=== PATIENT | female | born 1955 | race Caucasian/White ===

== ENCOUNTER 2023-04-24 13:43 | Outpatient (REF) | payer MEDICARE, SELFPAY ==
[2023-04-24 16:06] LABS: Alanine Aminotransferase 27 U/L (0-31); Albumin Level 4.3 g/dL (3.5-5.0); Alkaline Phosphatase 39 U/L (39-117); Anion Gap 12 (12-20); Aspartate Amino Transferase 25 U/L (5-31); Bilirubin Total 0.4 mg/dL (0.0-1.0); Blood Urea Nitrogen 15 mg/dL (9-16); Calcium 9.4 mg/dL (8.4-10.2); Carbon Dioxide 27 mmol/L (22-29); Chloride 106 mmol/L (96-108); Estimated Glomerular Filt Rate > 60; Glucose Random 77 mg/dL (60-115); Potassium 4.3 mmol/L (3.3-5.1); Sodium 141 mmol/L (135-145); Total Protein 7.5 g/dL (6.5-8.0)
[2023-04-24 16:14] LABS: Thyroid Stimulating Hormone 1.09 uIU/mL (0.32-4.0)
[2023-04-27 15:29] LABS: Transglutaminase IgA <1.0 U/mL
[2023-04-29 12:19] LABS: Endomysial IgA Antibody Negative (Negative)
== END 2023-04-24 13:44 | disposition home or self-care (01) ==
LOC: HO.LAB 13:43
PROVIDERS: PCP Internal Medicine; Visit Provider Physician Assistant
DX: K52.9 Noninfective gastroenteritis and colitis, unspecified (principal); R19.8 Other specified symptoms and signs involving the digestive system and abdomen; G89.29 Other chronic pain; Z98.890 Other specified postprocedural states
CPT/HCPCS: 36415; 80053; 84443; 85025; 86231; 86364; 99202

== ENCOUNTER 2023-04-24 13:43 | Outpatient (AMB) | payer MEDICARE, SELFPAY ==
--- NOTE | 2023-04-24 13:49 | A.OFFVIS_ITS ---
Intake Vital Signs 04/24/23 13:51 Height 5 ft 9.5 in Weight 127 lb 13.89 oz BMI 18.6 BP 149/72 H Blood Pressure Location Lt brachial Position Sitting Pulse 87 Intake Visit Reasons: Abdominal pain, nausea Intake Note: Liz presents in the office as a new patient for abdominal pains and nausea. CC: reclast fusion on the Apr. She states that she is having pains in her stomach and her bowels that have been ongoing for a while now. Client Solutions Manager Required: No Allergies erythromycin base [From Erythrocin] Allergy (Intermediate, Verified 04/24/23 13:51) GI upset LACTOSE Allergy (Intermediate, Uncoded 04/24/23 13:51) GI upset Medication List - Last Reconciled 04/24/23 by Celia Davis PA-C buspirone 10 mg PO BID cholecalciferol (vitamin D3) 10 mcg PO DAILY cranberry 400 mg PO DAILY pravastatin 10 mg PO BEDTIME vitamin B complex (B Complex-Vitamin B12 tablet) 1 tab PO DAILY HPI HPI Comments History of Present Illness Details A 67-year-old female referred with chronic abdominal pain-she has already been seen and evaluated previously having CT, blood working colonoscopy over the past few years She was unable to get appointment with [facility] so was referred here to [facility]. She had gone to [facility] 12/2022-where she had abdominal CT as w ell as blood work according to referral note all was within range with exception of severe constipation diverticulosis- not diverticulitis- She was did an enema she took senna- seemed to help. She had bowel/ stomach issues for years Colonoscopy 2016-normal other than diverticulosis-due for repeat colonoscopy, history of polyps previously Appetite is fairly good, she does fairly frequent nausea Very worried about celiac disease-and Crohns Reclast 04/20/23-osteopenia present- many question answered to their satisfaction No vomiting, hematemesis, hematochezia fever chills PFSH Medical History (Updated 04/26/23 @ 08:05 by Celia Davis PA-C) Hx of Surgical History (Updated 04/24/23 @ 14:03 by Celia Davis PA-C) Hx of carpal tunnel repair Hx of colonoscopy History of eye surgery Hx of left knee surgery Hx of tubal ligation Hx of dilation and curettage Hx of rotator cuff surgery Family History Mother DMII (diabetes mellitus, type 2) HTN (hypertension) Father Heart attack Daughter Diverticula of colon Social History (Updated 04/26/23 @ 08:00 by Celia Davis PA-C) Household Members: Family Alcohol intake: current Alcohol intake frequency: holidays/special occasions only Patient Tobacco Use Status: Current everyday Tobacco user Current occupational status: disabled Review of Systems Const All systems reviewed & are unremarkable except as noted in HPI and below Card Denies chest pain and Reports dyspnea on exertion (rare-) Resp Reports dyspnea on exertion (rare-) GI Reports abdominal pain, Denies hematochezia, Reports constipation, Denies heartburn, Denies diarrhea, Reports nausea and Denies vomiting Physical Exam Vital Signs: Last Vital Signs Pulse 87 04/24/23 13:51 BP 149/72 H 04/24/23 13:51 BMI result Body Mass Index 18.6 Const General: cooperative, healthy appearing, comfortable and anxious Orientation/consciousness: patient oriented x3 Limitations: no limitations Eyes Sclerae: sclerae normal Resp Effort & Inspection: normal respiratory effort and able to speak in complete sentences Auscultation: clear to auscultation bilaterally, no rales and no rhonchi Cardio Rate: regular rate Rhythm: regular rhythm Heart sounds: S1 normal heart sound present and S2 normal heart sound present GI Inspection: Yes normal to inspection Palpation (GI): Soft to palpation, nontender and no guarding Percussion: Yes normal to percussion Auscultation: normal bowel sounds Skin General skin exam: no rashes or lesions noted Neuro General: patient oriented x3 Extrem General: Yes full ROM Psych Appearance: grossly normal and well kempt Mental Status: mental status grossly normal Speech and movement: Normal speech and movement present Affect: Anxious affect present Attitude: cooperative Thought process: Normal thought process present Assessment & Plan Assessment & Plan (1) Chronic abdominal pain: Comment: Years chronic abdominal pain, may likely have functional component has had workup at weaning with CT of recent as well as blood work that she reports as normal. She is due for polyp surveillance colonoscopy Code(s): R10.9 - Unspecified abdominal pain; G89.29 - Other chronic pain Plan: Bowel regimen (2) Hx of colonoscopy: Code(s): Z98.890 - Other specified postprocedural states Plan: Schedule colonoscopy timing appropriate- able to successful colon prep Due for polyp surveillance Plan Labs Consistent bowel regimen Placed order EGD colonoscopy Will see back prior to procedures to ensure adequate bowel routine Orders: Orders Comprehensive Met. Panel 04/24/23 K58.9 - Irritable bowel syndrome without diarrhea Thyroid Stimulating Hormone 04/24/23 R19.8 - Other specified symptoms and signs involving the digestive system and abdomen Transglutaminase IgA 04/24/23 G89.29 - Other chronic pain, R10.9 - Unspecified abdominal pain, Z98.890 - Other specified postprocedural states Complete Blood Count Auto Diff 04/24/23 K52.9 - Noninfective gastroenteritis and colitis, unspecified Endomysial IgA rflx Titer 04/24/23 G89.29 - Other chronic pain, R10.9 - Unspecified abdominal pain, Z98.890 - Other specified postprocedural states Medications: New docusate sodium (Colace) 200 mg (2 x 100 mg) PO BEDTIME 60 caps 5RF bisacodyl (Dulcolax (bisacodyl)) 10 mg ND DAILY PRN 20 ea 0RF constipation bisacodyl (Dulcolax (bisacodyl)) Day before procedure, prep day Take 4 tablets by mouth upon awakening followed by large glass of water 20 mg (4 x 5 mg) PO ONCE 1 day 4 tabs 0RF colonoscopy prep Z12.11 - Encounter for screening for malignant neoplasm of colon calcium polycarbophil (Fiber Laxative (calcium polycarbophil)) 1,250 mg (2 x 625 mg) PO DAILY 30 days 60 tabs 3RF polyethylene glycol 3350 (Miralax) 17 grams PO DAILY 510 grams 6RF polyethylene glycol 3350 (Miralax) Take as directed by mouth the day before your procedure. 238 grams PO ONCE 1 day PRN 238 grams 0RF laxative effect Patient Instructions: Pleasant somewhat anxious 67-year-old female with chronic abdominal pain- She will have Labs Consistent bowel regimen Maintain high-fiber Will see prior to EGD colonoscopy to assure adequate prep Reassurance Encouraged to call questions or concerns Coding Level of Care Code New Pt Level 4 (73510) Diagnoses Chronic abdominal pain R10.9; G89.29 Hx of colonoscopy Z98.890 Time Spent (min) 50 Comment present
[2023-04-24 13:51] VITALS: BP 149/72; PULSE 87; BMI 18.6
== END 2023-04-24 15:33 | disposition home or self-care (01) ==
PROVIDERS: PCP Internal Medicine; Visit Provider Physician Assistant
DX: R10.9 Unspecified abdominal pain (principal); G89.29 Other chronic pain; Z98.890 Other specified postprocedural states
CPT/HCPCS: 99204

== ENCOUNTER 2023-06-22 11:55 | Outpatient (AMB) | payer MEDICARE, SELFPAY ==
--- NOTE | 2023-06-22 12:12 | A.OFFVIS_ITS ---
Intake Vital Signs 06/22/23 12:38 Height 5 ft 9.5 in Weight 132 lb BMI 19.2 BP 130/58 L Blood Pressure Location Rt brachial Position Sitting Pulse 94 Intake Visit Reasons: 8 week follow up Allergies erythromycin base [From Erythrocin] Allergy (Intermediate, Verified 04/24/23 13:51) GI upset LACTOSE Allergy (Intermediate, Uncoded 04/24/23 13:51) GI upset Medication List - Last Reconciled 06/22/23 by Celia Davis PA-C bisacodyl (Dulcolax (bisacodyl)) 10 mg CA DAILY PRN bisacodyl (Dulcolax (bisacodyl)) 20 mg (4 x 5 mg) PO ONCE 1 day buspirone 10 mg PO BID calcium polycarbophil (Fiber Laxative (calcium polycarbophil)) 1,250 mg (2 x 625 mg) PO DAILY 30 days cholecalciferol (vitamin D3) 10 mcg PO DAILY cranberry 400 mg PO DAILY docusate sodium (Colace) 200 mg (2 x 100 mg) PO BEDTIME polyethylene glycol 3350 (Miralax) 17 grams PO DAILY polyethylene glycol 3350 (Miralax) 238 grams PO ONCE PRN 1 day pravastatin 10 mg PO BEDTIME vitamin B complex (B Complex-Vitamin B12 tablet) 1 tab PO DAILY HPI HPI Comments History of Present Illness Details A 67 y/o female with a personal history of colon polyps chronic nausea, constipation follows up- she is following bowel regimen with excellent response- she has had BM typically once sometimes twice daily-we had held off on scheduling colonoscopy- She has long hx -nausea-the she denies acid reflux She eats healthy-trying to maintain weight We have reviewed blood work -no anemia, celiac markers negative She has nausea, no vomiting hematemesis, hematochezia fever or chills PFSH Medical History (Updated 06/22/23 @ 16:01 by Celia Davis PA-C) Hx of Surgical History (Updated 06/22/23 @ 16:02 by Celia Davis PA-C) Hx of carpal tunnel repair Hx of colonoscopy History of eye surgery Hx of left knee surgery Hx of tubal ligation Hx of dilation and curettage Hx of rotator cuff surgery Family History Mother DMII (diabetes mellitus, type 2) HTN (hypertension) Father Heart attack Daughter Diverticula of colon Social History (Updated 04/26/23 @ 08:00 by Celia Davis PA-C) Household Members: Family Alcohol intake: current Alcohol intake frequency: holidays/special occasions only Patient Tobacco Use Status: Current everyday Tobacco user Current occupational status: disabled Review of Systems Const All systems reviewed & are unremarkable except as noted in HPI and below Card Denies chest pain and Denies dyspnea Resp Denies dyspnea GI Denies abdominal pain Physical Exam Vital Signs: Last Vital Signs Pulse 94 06/22/23 12:38 BP 130/58 L 06/22/23 12:38 BMI result Body Mass Index 19.2 Const General: cooperative, comfortable and no acute distress Nutritional Appearance: thin Orientation/consciousness: patient oriented x3 Limitations: no limitations Eyes Sclerae: sclerae normal Resp Effort & Inspection: normal respiratory effort and able to speak in complete sentences Skin General skin exam: dry skin Neuro General: patient oriented x3 Extrem General: Yes full ROM Psych Appearance: well kempt Mental Status: mental status grossly normal Speech and movement: Normal speech and movement present and Clear speech present Affect: normal affect Attitude: cooperative Thought content: Normal thought content present Insight: Good insight present (Psych) Judgement: Good judgement present (Psych) Assessment & Plan Assessment & Plan (1) Chronic nausea: Code(s): R11.0 - Nausea Plan: EGD (2) Hx of colonoscopy: Comment: History-colon polyps Code(s): Z98.890 - Other specified postprocedural states (3) Chronic abdominal pain: Comment: Years chronic abdominal pain, may likely have functional component She is due for polyp surveillance colonoscopy Code(s): R10.9 - Unspecified abdominal pain; G89.29 - Other chronic pain (4) Hx of adenomatous colonic polyps: Code(s): Z86.010 - Personal history of colonic polyps Plan: Polyp surveillance colonoscopy (5) Chronic constipation: Comment: Good response with consistent bowel regimen Should be able to have adequate prep for colonoscopy Code(s): K59.09 - Other constipation Plan: Proceed to colonoscopy Plan EGD/ colon-ROJAS- Orders: Orders EGD/Penelope Combo - GI Use Only Today G89.29 - Other chronic pain, R10.9 - Unspecified abdominal pain, R11.0 - Nausea, Z86.010 - Personal history of colonic polyps, Z98.890 - Other specified postprocedural states Patient Instructions: EGD and colonoscopy Discussed procedures, rare risks, need for escort MiraLax Gatorade prep reviewed literature given Maintain high-fiber diet Encouraged to call questions or concerns Appreciate the opportunity assist care pleasant patient Coding Level of Care Code Est Pt Level 3 (04775) Diagnoses Chronic nausea R11.0 Hx of colonoscopy Z98.890 Chronic abdominal pain R10.9; G89.29 Hx of adenomatous colonic polyps Z86.010 Chronic constipation K59.09 Time Spent (min) 25
[2023-06-22 12:38] VITALS: BP 130/58; PULSE 94; BMI 19.2
== END 2023-06-22 12:51 | disposition home or self-care (01) ==
PROVIDERS: PCP Internal Medicine; Visit Provider Physician Assistant
DX: R11.0 Nausea (principal); Z98.890 Other specified postprocedural states; R10.9 Unspecified abdominal pain; G89.29 Other chronic pain; Z86.010 Personal history of colon polyps; K59.09 Other constipation
CPT/HCPCS: 99213

== ENCOUNTER → 2023-06-22 11:55 | Outpatient (BNVA) | payer MEDICARE, SELFPAY | PROVIDERS: PCP Internal Medicine; Visit Provider Physician Assistant | DX: R11.0 Nausea (principal); R10.9 Unspecified abdominal pain; G89.29 Other chronic pain; Z98.890 Other specified postprocedural states | CPT/HCPCS: 99212 ==

== ENCOUNTER 2023-12-19 10:10 | Day surgery (SDC) | payer MEDICARE, SELFPAY ==
--- NOTE | 2023-12-15 10:50 | HO.ANESPROP2 ---
Documented by User: Sheela Lucas NP 12/15/23 10:51 HPI - Anesthesia Eval Consult details Narrative: 68yo F for Upper Endoscopy and Colonoscopy PMFSH Active Problems Active Problems: All Active Problems Chronic constipation (Acute) Hx of adenomatous colonic polyps (Acute) Chronic nausea (Acute) Hx of colonoscopy (Acute) Chronic abdominal pain (Acute) Past Medical History Medical History Hx of Family History Family History Mother DMII (diabetes mellitus, type 2) HTN (hypertension) Father Heart attack Daughter Diverticula of colon Surgical History Surgical History Hx of carpal tunnel repair Hx of colonoscopy History of eye surgery Hx of left knee surgery Hx of tubal ligation Hx of dilation and curettage Hx of rotator cuff surgery Social History Social History (Updated 04/26/23 @ 08:00 by Celia Davis PA-C) Household Members: Family Alcohol intake: current Alcohol intake frequency: holidays/special occasions only Patient Tobacco Use Status: Current everyday Tobacco user Cigarette Packs Per Day: 1.5 Cigarettes Per Day: 30.0 Have you been hit, kicked, punched, or otherwise hurt by someone within the past year? If so, by whom?: No Are you DNR?: No Advance Directives: No Advance Directives Information Provided: Yes Recently lost weight without trying: No Nutrition Risks: No Nutritional Risk Patient : No Current occupational status: disabled Meds Allergies Allergy/AdvReac Type Severity Reaction Status Date / Time erythromycin base Allergy Intermediate GI upset Verified 04/24/23 13:51 [From Erythrocin] LACTOSE Allergy Intermediate GI upset Uncoded 04/24/23 13:51 Home Medications ?Medication ?Instructions ?Recorded ?Confirmed ?Last Taken ?Type buspirone 10 mg tablet 10 mg PO BID 04/24/23 06/22/23 Unknown History cholecalciferol (vitamin D3) 10 10 mcg PO DAILY 04/24/23 06/22/23 Unknown History mcg (400 unit) capsule cranberry 400 mg capsule 400 mg PO DAILY 04/24/23 06/22/23 Unknown History pravastatin 10 mg tablet 10 mg PO BEDTIME 04/24/23 06/22/23 Unknown History vitamin B complex (B 1 tab PO DAILY 04/24/23 06/22/23 Unknown History Complex-Vitamin B12 tablet) Assessment and Plan Assessment Anesthesia Assessment: PAT Visit Documented by User: Neal Sung MD 12/19/23 13:11 PMF Past Medical History Medical History Hx of Family History Family History Mother DMII (diabetes mellitus, type 2) HTN (hypertension) Father Heart attack Daughter Diverticula of colon Family history of problems with anesthesia: No Surgical History Surgical History Hx of carpal tunnel repair Hx of colonoscopy History of eye surgery Hx of left knee surgery Hx of tubal ligation Hx of dilation and curettage Hx of rotator cuff surgery History of Problems with Anesthesia: No Social History Social History (Updated 04/26/23 @ 08:00 by Celia Davis PA-C) Household Members: Family Alcohol intake: current Alcohol intake frequency: holidays/special occasions only Patient Tobacco Use Status: Current everyday Tobacco user Cigarette Packs Per Day: 1.5 Cigarettes Per Day: 30.0 Have you been hit, kicked, punched, or otherwise hurt by someone within the past year? If so, by whom?: No Are you DNR?: No Advance Directives: No Advance Directives Information Provided: Yes Recently lost weight without trying: No Nutrition Risks: No Nutritional Risk Patient : No Current occupational status: disabled Meds Allergies Allergy/AdvReac Type Severity Reaction Status Date / Time erythromycin base Allergy Intermediate GI upset Verified 04/24/23 13:51 [From Erythrocin] LACTOSE Allergy Intermediate GI upset Uncoded 04/24/23 13:51 Home Medications ?Medication ?Instructions ?Recorded ?Confirmed ?Last Taken ?Type buspirone 10 mg tablet 10 mg PO BID 04/24/23 06/22/23 Unknown History cholecalciferol (vitamin D3) 10 10 mcg PO DAILY 04/24/23 06/22/23 Unknown History mcg (400 unit) capsule cranberry 400 mg capsule 400 mg PO DAILY 04/24/23 06/22/23 Unknown History pravastatin 10 mg tablet 10 mg PO BEDTIME 04/24/23 06/22/23 Unknown History vitamin B complex (B 1 tab PO DAILY 04/24/23 06/22/23 Unknown History Complex-Vitamin B12 tablet) Exam Airway Mallampati Class: II TM Dist: >3cm Neck ROM: Full Partial: Upper Loose/Missing/Broken Teeth: Yes and Upper Heart: ok Lungs: ok Assessment and Plan Assessment Anesthesia Assessment: Anesthesia Plan Discussed and Chart Reviewed Final Anesthetic Review Family History of Problems with Anesthesia: No History of Problems with Anesthesia: No NPO: Yes ASA Class: II Final Preanesthetic Review: No Changes in Pt Med Stat, Meds/Allgs Chart Reviewed, Consent Obtained/Reviewed and Anes Risks/Benef Reviewed Patient Risk: Low Procedure Risk: Intermediate Anesthetic Plan Anesthetic Plan: Agree w/ Assess. and Plan and TIVA Disposition: Standard PACU
[2023-12-19 10:21] VITALS: BMI 18.3
[2023-12-19 10:38] VITALS: BP 145/85; PULSE 98; RESP 18; TEMP 37.7; O2SAT 98
[2023-12-19] MEDS: Lactated Ringers 1,000 ML 100 ML IVCONT (10:47)
--- NOTE | 2023-12-19 13:13 | MHC.SHP ---
Pre-Procedural Eval Section A - 24 Hr Update-Section A only Date of Service: 12/19/23 Section B - Complete if H&P > 30 days Chief Complaint: hx colonic polyps,pain,nausea, Details of Present Illness: Hx of Surgical History (Updated 06/22/23 @ 16:02 by Celia Davis PA-C) Hx of carpal tunnel repair Hx of colonoscopy History of eye surgery Hx of left knee surgery Hx of tubal ligation Hx of dilation and curettage Hx of rotator cuff surgery Allergies: Allergies Allergy/AdvReac Type Severity Reaction Status Date / Time erythromycin base Allergy Intermediate GI upset Verified 04/24/23 13:51 [From Erythrocin] LACTOSE Allergy Intermediate GI upset Uncoded 04/24/23 13:51 Review of Systems Review of Systems Comment: Ten point ROS negative Exam Exam Comment: Gen appear: No acute distress HEENT: no icterus Chest: No overt resp distress Abd: soft, nontender, nondistended Psych: Stable affect, answering questions appropriately Neuro: A/Ox3 noted to move all extremities spontaneously Ext: no peripheral edema Plan Diagnosis/Plan: Unchanged I have reviewed the history and physical and performed a pertinent physical examination on my patient. No changes have occurred unless specified. Time Spent With Patient Time: Total time managing care of this patient today ____ minutes.
[2023-12-19 13:55] VITALS: BP 109/66; PULSE 82; RESP 16; TEMP 37; O2SAT 98
[2023-12-19 14:10] VITALS: BP 122/66; PULSE 73; RESP 16; O2SAT 98
[2023-12-19 14:25] VITALS: BP 140/73; PULSE 71; RESP 16; TEMP 36.8; O2SAT 98
--- NOTE | 2023-12-19 14:26 | P.OPN-COLO_ITS ---
Colonoscopy Operative Note Operative Note Date of Service: 12/19/23 Narrative: Procedure: Upper endoscopy and colonoscopy Indication: Abd bloating, change in bowel habits Endoscopist: Maggi Ram MD Anesthesia Provider: Waleska Sharpe CRNA Anesthesia type: MAC Instrument: [id number] and [id number] EGD Procedure:?? The procedure, indications, preparation and potential complications were reviewed with the patient, who indicated understanding and gave written informed consent to proceed. The endoscope was introduced through the mouth, and advanced to the 2nd part of the duodenum. The mucosa was carefully examined on slow withdrawal of the endoscope. The patient tolerated the procedure well. There were no immediate complications.? EGD Findings:? * Esophagus:? Normal esophageal mucosa. Z line is at 40 cm. There was a small hiatal hernia. * Stomach:? Erosions in the stomach body and antrum were noted. Retroflexion was performed in the cardia that showed Hill grade 2 hiatal hernia. Random cold forceps biopsies were taken from the stomach. * Duodenum:? Normal duodenal mucosa. Cold forceps biopsies were taken from the duodenal bulb and 2nd portion of the duodenum to rule out celiac sprue. Colonoscopy Procedure:? The patient was then turned for the colonoscopy. A digital rectal exam was performed which was abnormal for numerous anal warts.? A distal attachment cap was affixed to the tip of the scope and the colonoscope was then inserted through the anus and advanced through the colon and advanced to the cecum at 70 cm and terminal ileum.? Appendiceal orifice and ileocecal valve were identified. Mucosa was carefully examined under high definition white light as the instrument was slowly withdrawn in a retrograde panoramic fashion. Retroflexion was performed in rectum. The procedure was not difficult. The quality of the prep was BBPS: 2+2+3 = adequate Withdrawal time 12 minutes Limitations: No limitations Findings: Mucosa: Normal colon and terminal ileum mucosa. Cold forceps biopsies were taken from the right and left side of the colon to rule out microscopic colitis. Protruding lesions: * One sessile polyp sized 2 mm in the cecum was removed with cold forceps and retrieved. * One sessile polyp sized 4 mm in the transverse was removed with cold forceps and retrieved. * 1 sessile polyp of size 3 mm in the sigmoid colonwas removed with cold forceps and retrieved. * Large internal hemorrhoids without stigmata of recent bleeding. Excavated lesions: * Moderate diverticulosis of the left colon. Impression: 1. Normal esophageal mucosa 2. Gastritis (biopsy) 3. Hiatal hernia 4. Normal duodenum (biopsy) 5. Perianal warts 6. Normal colon and terminal ileum mucosa 7. Total 3 polyps removed 8. Diverticulosis 9. Internal and external hemorrhoids Recommendations:?? * Follow-up path results * Start omeprazole 20mg once daily * Consider referral to ID or colorectal surgery for management of perianal warts * Repeat colonoscopy in 3-5 years depending on path.
== END 2023-12-19 14:59 | disposition home or self-care (01) ==
PROVIDERS: PCP Internal Medicine; Visit Provider Internal Medicine
PROC: (CPT 45380; principal; 2023-12-19 12:50)
DX: R19.4 Change in bowel habit (principal); R14.0 Abdominal distension (gaseous); Z86.010 Personal history of colon polyps; D12.3 Benign neoplasm of transverse colon; K63.5 Polyp of colon; K57.30 Diverticulosis of large intestine without perforation or abscess without bleeding; K64.8 Other hemorrhoids; K64.4 Residual hemorrhoidal skin tags; A63.0 Anogenital (venereal) warts; K59.09 Other constipation; G89.29 Other chronic pain; R10.9 Unspecified abdominal pain; R11.0 Nausea; K29.80 Duodenitis without bleeding; K44.9 Diaphragmatic hernia without obstruction or gangrene; E73.9 Lactose intolerance, unspecified; Z79.899 Other long term (current) drug therapy; Z88.1 Allergy status to other antibiotic agents; Z98.890 Other specified postprocedural states; F17.210 Nicotine dependence, cigarettes, uncomplicated
CPT/HCPCS: 45380; 43239; 88305; 88313; 88342; J1596; J2704

== ENCOUNTER → 2023-12-19 10:10 | Outpatient (BNV) | payer MEDICARE, SELFPAY | PROVIDERS: PCP Internal Medicine; Visit Provider Internal Medicine | DX: R14.0 Abdominal distension (gaseous) (principal); K29.70 Gastritis, unspecified, without bleeding; K44.9 Diaphragmatic hernia without obstruction or gangrene; D12.0 Benign neoplasm of cecum; D12.3 Benign neoplasm of transverse colon; D12.5 Benign neoplasm of sigmoid colon; K57.30 Diverticulosis of large intestine without perforation or abscess without bleeding; K64.8 Other hemorrhoids | CPT/HCPCS: 43239; 45380 ==

== ENCOUNTER 2023-12-29 12:15 | Outpatient (AMB) | payer MEDICARE, SELFPAY ==
--- NOTE | 2023-12-29 12:34 | MHC.OFFVIS ---
Vital Signs 12/29/23 12:38 Height 5 ft 10 in Blood Pressure Location Lt brachial Position Sitting Intake Visit Reasons: Celia PT Results from procedure Intake Note: Liz presents in the office as a Celia patient for results for procedures. CC: Crime Prevention Worker Required: No Allergies erythromycin base [From Erythrocin] Allergy (Intermediate, Verified 12/29/23 12:38) GI upset LACTOSE Allergy (Intermediate, Uncoded 12/29/23 12:38) GI upset HPI Comments Details: 68y.o F who is here for post procedure follow up. 1. Normal esophageal mucosa 2. Gastritis (biopsy) 3. Hiatal hernia 4. Normal duodenum (biopsy) 5. Perianal warts 6. Normal colon and terminal ileum mucosa 7. Total 3 polyps removed 8. Diverticulosis 9. Internal and external hemorrhoids Path: A. Duodenum, biopsy: Chronic inactive duodenitis. B. Stomach, random, biopsy: Oxyntic mucosa within normal limits; no Helicobacter organisms seen. C. Colon, right, biopsy: Colonic mucosa within normal limits. D. Cecum, polypectomy: Clinically polypoid colonic mucosa within normal limits. E. Colon, transverse, polypectomy: Sessile serrated lesion/polyp; negative for cytologic dysplasia. F. Colon, left, biopsy: Colonic mucosa within normal limits. G. Colon, sigmoid, polypectomy: Hyperplastic mucosal polyp 12/29/23: Here for post procedure follow up. Has been taking omeprazole for gastritis. Currently reports some improvement with it. Avoiding NSAIDs used to take a lot for back pain and knee pain. Switched to celebrex by her ortho. Procedure and path results reviewed. Pt still waiting to hear from ID office. Will send another msg. [facility] Medical History Hx of Surgical History Hx of carpal tunnel repair Hx of colonoscopy History of eye surgery Hx of left knee surgery Hx of tubal ligation Hx of dilation and curettage Hx of rotator cuff surgery Family History Mother DMII (diabetes mellitus, type 2) HTN (hypertension) Father Heart attack Daughter Diverticula of colon Social History Household Members: Family Alcohol intake: current Alcohol intake frequency: holidays/special occasions only Patient Tobacco Use Status: Current everyday Tobacco user Cigarette Packs Per Day: 1.5 Cigarettes Per Day: 30.0 Current occupational status: disabled Physical Exam No apparent distress Nonicteric Abdomen soft, nondistended Alert and oriented x3, normal gait Assessment & Plan Assessment & Plan (1) Perianal wart: Code(s): A63.0 - Anogenital (venereal) warts Category: Medical (2) Chronic constipation: Comment: Good response with consistent bowel regimen Should be able to have adequate prep for colonoscopy Code(s): K59.09 - Other constipation Category: Medical (3) Sessile serrated polyp of colon: Code(s): D12.6 - Benign neoplasm of colon, unspecified Category: Medical (4) Gastritis: Code(s): K29.70 - Gastritis, unspecified, without bleeding Category: Medical Plan 1. Likely had NSAID related gastritis. - Cont omeprazole 20 mg x 12 weeks - Tylenol ok. Celebrex ok for short term - Avoid NSAIDs. 2. SSL in colon - Repeat colo in 5 years 3. Perianal warts Has genital warts as well. Reports has prev been checked for HPV and was told is negative. - Referral to ID already placed. Will req MA to follow up. Follow up 3 months with catalina. Coding Level of Care Code Est Pt Level 4 (84063) Diagnoses Perianal wart A63.0 Chronic constipation K59.09 Sessile serrated polyp of colon D12.6 Gastritis K29.70
[2023-12-29 12:38] VITALS: BP 154/68; PULSE 70
== END 2023-12-29 13:03 | disposition home or self-care (01) ==
PROVIDERS: PCP Internal Medicine; Visit Provider Internal Medicine
DX: A63.0 Anogenital (venereal) warts (principal); K59.09 Other constipation; D12.6 Benign neoplasm of colon, unspecified; K29.70 Gastritis, unspecified, without bleeding
CPT/HCPCS: 99214

== ENCOUNTER → 2023-12-29 12:15 | Outpatient (BNVA) | payer MEDICARE, SELFPAY | PROVIDERS: PCP Internal Medicine; Visit Provider Internal Medicine | DX: A63.0 Anogenital (venereal) warts (principal); K59.09 Other constipation; D12.6 Benign neoplasm of colon, unspecified; K29.70 Gastritis, unspecified, without bleeding | CPT/HCPCS: 99212 ==

== ENCOUNTER 2024-03-07 14:07 | Outpatient (REF) | payer MEDICARE, SELFPAY | END 2024-03-07 14:08 | disposition home or self-care (01) | LOC: HO.LNP 14:07 | PROVIDERS: PCP Internal Medicine; Visit Provider Obstetrics & Gynecology | DX: N90.89 Other specified noninflammatory disorders of vulva and perineum (principal); N84.3 Polyp of vulva | CPT/HCPCS: 56605; 88305; 88312; 99202 ==

== ENCOUNTER 2024-03-07 14:07 | Outpatient (AMB) | payer MEDICARE, SELFPAY ==
--- NOTE | 2024-03-07 14:07 | A.OFFVIS_ITS ---
Vital Signs 03/07/24 14:08 Height 5 ft 10 in Weight 130 lb BMI 18.7 BP 162/80 H Intake Visit Reasons: warts/Referral Corporate Job Titles Required: No Information Interpreted: non-clinical & clinical Sleeping Room Cleaner: Sleeping Room Cleaner Present (Radha BRANCH) Accompanied by: Spouse Allergies erythromycin base [From Erythrocin] Allergy (Intermediate, Verified 03/07/24 14:11) GI upset LACTOSE Allergy (Intermediate, Uncoded 03/07/24 14:11) GI upset Post menopausal: Yes HPI Comments Details: presenting complaining of perineal and perirectal lesions. Co testing was in 2019 negative according to the patient no reports available, patient was adequately screen for 10 years prior with multiple negative co testing according to her, no records are available [facility] Medical History Hx of Surgical History Hx of carpal tunnel repair Hx of colonoscopy History of eye surgery Hx of left knee surgery Hx of tubal ligation Hx of dilation and curettage Hx of rotator cuff surgery Family History Mother DMII (diabetes mellitus, type 2) HTN (hypertension) Father Heart attack Daughter Diverticula of colon Social History Household Members: Family Alcohol intake: current Alcohol intake frequency: holidays/special occasions only Patient Tobacco Use Status: Current everyday Tobacco user Cigarette Packs Per Day: 1.5 Cigarettes Per Day: 30.0 Current occupational status: disabled Review of Systems Const All systems reviewed & are unremarkable except as noted in HPI and below Physical Exam Vital Signs: Last Vital Signs BP 162/80 H 03/07/24 14:08 BMI result Body Mass Index 18.7 General: Yes no CVA tenderness External Female Exam: normal appearance of the urethra and other ( bilateral labia majora and perianal multiple warty lesions) Speculum Exam - Vagina: normal appearance of the vagina, normal palpation, no lesions and no masses Speculum Exam - Cervix: normal appearance of the cervix, normal palpation, no lesions, no masses and nontender Bimanual exam- vagina & uterus: normal bimanual exam, normal palpation, uterine size normal, normal palpation, uterine shape normal, No Cervical tenderness present and non-tender Bimanual Exam- Adnexa, other: normal adnexae Back/Spine/Pelvis Back: no CVA tenderness Office Procedures DIRECTOR OF CONTENT AND PROGRAMMING Biopsy Before the procedure was started d/w patient the procedure, alternatives ( do nothing, medical rx), & all the risks associated with the procedure ( bleeding , infection, vulvar scarring, painful intercourse, injury to vessels, possible need for transfusion with all its risks) then patient signed the consent. Preop dx: Right labia majora lower lesion Op: Right labia majora lower lesion excision Post op: Same Anesthesia: Lidocaine 1% 3cc used Procedure: Using betadine the area was scrubbed and draped in the usual manner. 3 cc of lidocaine was used for anesthesia at the Right labia majora lower lesion area ; using scissors and pickup the Right labia majora lower lesion was excised, Vicryl was used to approximate the edges. Pressure was used for hemostasis. The patient tolerated the procedure well. Discharge Instructions: The patient was instructed to schedule an appointment in 2 weeks for follow-up and to call if temp>100.4, area of the biopsy redness or pain, nausea/vomiting. This note was generated with a voice recognition program. Some errors may have b een overlooked during the review of this note. Sometimes these errors may affect the content or meaning of a given sentence. [id number] of Vulva/Perineum Procedure code (CPT) selection complete Assessment & Plan Assessment & Plan (1) Vulvar lesion: Comment: multiple bilateral perineal and perianal lesions Code(s): N90.89 - Other specified noninflammatory disorders of vulva and perineum Category: Medical Plan: discussed with the patient the finding on pelvic exam, recommended vulvar lesion biopsy. Right labia majora lower lesion excised, see the procedure Orders: Orders AMB DIRECTOR OF CONTENT AND PROGRAMMING Biopsy Today N90.89 - Other specified noninflammatory disorders of vulva and perineum Coding Level of Care Code New Pt Level 3 (10974) Procedure Only Diagnoses Vulvar lesion N90.89 CPT Codes DIRECTOR OF CONTENT AND PROGRAMMING Biopsy - CPT: 32886-Xzwglf of Vulva/Perineum ([id number])
[2024-03-07 14:08] VITALS: BP 162/80; BMI 18.7
== END 2024-03-07 15:14 | disposition home or self-care (01) ==
LOC: HO.HWS 14:07
PROVIDERS: PCP Internal Medicine; Visit Provider Obstetrics & Gynecology
DX: N90.89 Other specified noninflammatory disorders of vulva and perineum (principal)
CPT/HCPCS: 56605; 99203

== ENCOUNTER 2024-05-01 10:16 | Outpatient (AMB) | payer MEDICARE, SELFPAY ==
--- NOTE | 2024-05-01 10:20 | MHC.OFFVIS ---
Vital Signs 05/01/24 10:21 Height 5 ft 10 in Weight 130 lb 1.164 oz BMI 18.7 BP 151/65 H Blood Pressure Location Lt brachial Position Sitting Pulse 84 Intake Visit Reasons: chronic constipation Intake Note: Liz presents in the office as a follow up patient for Chronic Constipation. CC: She wants to talk about the miralax and states that every once in a while her constipation is there but it has gotten a lot better. Allergies erythromycin base [From Erythrocin] Allergy (Intermediate, Verified 05/01/24 10:21) GI upset LACTOSE Allergy (Intermediate, Uncoded 05/01/24 10:21) GI upset HPI Comments Details: 68y.o F who is here for post procedure follow up. 1. Normal esophageal mucosa 2. Gastritis (biopsy) 3. Hiatal hernia 4. Normal duodenum (biopsy) 5. Perianal warts 6. Normal colon and terminal ileum mucosa 7. Total 3 polyps removed 8. Diverticulosis 9. Internal and external hemorrhoids Path: A. Duodenum, biopsy: Chronic inactive duodenitis. B. Stomach, random, biopsy: Oxyntic mucosa within normal limits; no Helicobacter organisms seen. C. Colon, right, biopsy: Colonic mucosa within normal limits. D. Cecum, polypectomy: Clinically polypoid colonic mucosa within normal limits. E. Colon, transverse, polypectomy: Sessile serrated lesion/polyp; negative for cytologic dysplasia. F. Colon, left, biopsy: Colonic mucosa within normal limits. G. Colon, sigmoid, polypectomy: Hyperplastic mucosal polyp 12/29/23: Here for post procedure follow up. Has been taking omeprazole for gastritis. Currently reports some improvement with it. Avoiding NSAIDs used to take a lot for back pain and knee pain. Switched to celebrex by her ortho. Procedure and path results reviewed. Pt still waiting to hear from ID office. Will send another msg. 05/01/24: Reports good control of constipation now with miralax. Notices it more with calcium supplements. COmpelted PPI for gastritis. Noticed rebound heartburn x 2 weeks after but now resolved. Occ has diet triggered heartburn. PFSH Medical History Hx of Surgical History (Updated 05/01/24 @ 10:25 by SARINA Tran) History of esophagogastroduodenoscopy (EGD) Hx of carpal tunnel repair Hx of colonoscopy History of eye surgery Hx of left knee surgery Hx of tubal ligation Hx of dilation and curettage Hx of rotator cuff surgery Family History Mother DMII (diabetes mellitus, type 2) HTN (hypertension) Father Heart attack Daughter Diverticula of colon Social History Household Members: Family Alcohol intake: current Alcohol intake frequency: holidays/special occasions only Patient Tobacco Use Status: Current everyday Tobacco user Cigarette Packs Per Day: 1.5 Cigarettes Per Day: 30.0 Current occupational status: disabled Review of Systems Const All systems reviewed & are unremarkable except as noted in HPI and below Physical Exam Vital Signs: Last Vital Signs Pulse 84 05/01/24 10:21 BP 151/65 H 05/01/24 10:21 BMI result Body Mass Index 18.7 No apparent distress Nonicteric Abdomen soft, nondistended Alert and oriented x3, normal gait Assessment & Plan Assessment & Plan (1) Chronic constipation: Comment: Good response with consistent bowel regimen Should be able to have adequate prep for colonoscopy Code(s): K59.09 - Other constipation Category: Medical (2) Sessile serrated polyp of colon: Code(s): D12.6 - Benign neoplasm of colon, unspecified Category: Medical (3) Gastritis: Code(s): K29.70 - Gastritis, unspecified, without bleeding Category: Medical (4) Perianal wart: Code(s): A63.0 - Anogenital (venereal) warts Category: Medical Plan: Managed by ob-air cargo specialist supervisor Plan 1. Likely had NSAID related gastritis. - Avoid NSAIDs - Tylenol ok. Short term celebrex ok - Can take pepcid PRN 2. Constipation Recommended to incorporate fiber in diet. Can take OTC supplement. Cont miralax, though may not need it often once starts fiber. Plan: - Cont good hydration - Add fiber such as psyllium, citrucel, benefiber etc -- start 1 tsp x 7 days and then increase to 1 tbsp daily - Miralax PRN - Combine mag with shaunna supplements to avoid constipation 2. SSL in colon - Repeat colo in 2028. PRN follow up Medications: New famotidine 10 mg PO BEDTIME 30 days PRN 30 tabs 1RF dyspepsia Coding Level of Care Code Est Pt Level 4 (99141) Diagnoses Chronic constipation K59.09 Sessile serrated polyp of colon D12.6 Gastritis K29.70 Perianal wart A63.0
[2024-05-01 10:21] VITALS: BP 151/65; PULSE 84; BMI 18.7
== END 2024-05-01 12:40 | disposition home or self-care (01) ==
PROVIDERS: PCP Internal Medicine; Visit Provider Internal Medicine
DX: K59.09 Other constipation (principal); D12.6 Benign neoplasm of colon, unspecified; K29.70 Gastritis, unspecified, without bleeding; A63.0 Anogenital (venereal) warts
CPT/HCPCS: 99214

== ENCOUNTER → 2024-05-01 10:16 | Outpatient (BNVA) | payer MEDICARE, SELFPAY | PROVIDERS: PCP Internal Medicine; Visit Provider Internal Medicine | DX: K59.09 Other constipation (principal); K29.70 Gastritis, unspecified, without bleeding; D12.6 Benign neoplasm of colon, unspecified; A63.0 Anogenital (venereal) warts | CPT/HCPCS: 99212 ==

== ENCOUNTER 2024-06-17 14:27 | Outpatient (REF) | payer MEDICARE, SELFPAY | END 2024-06-17 14:28 | disposition home or self-care (01) | LOC: HO.LNP 14:27 | PROVIDERS: PCP Internal Medicine; Visit Provider Obstetrics & Gynecology | DX: N90.89 Other specified noninflammatory disorders of vulva and perineum (principal) | CPT/HCPCS: 56605; 88305; 99212 ==

== ENCOUNTER 2024-06-17 14:27 | Outpatient (AMB) | payer MEDICARE, SELFPAY ==
--- NOTE | 2024-06-17 14:39 | A.OFFVIS_ITS ---
Vital Signs 06/17/24 14:41 Height 5 ft 10 in Weight 130 lb BMI 18.7 Intake Visit Reasons: Biopsy results/DO NOT RS Signals Analyst Required: No Signals Analyst Services: Signals Analyst Present Information Interpreted: non-clinical & clinical Wind Plant Manager: Wind Plant Manager Present (Radha Reyes SARINA) Accompanied by: Spouse Allergies erythromycin base [From Erythrocin] Allergy (Intermediate, Verified 06/17/24 14:41) GI upset LACTOSE Allergy (Intermediate, Uncoded 06/17/24 14:41) GI upset Post menopausal: Yes HPI Comments Details: Presenting for right vulvar excisional biopsy follow-up, doing well with no complaints. The pathology showed the following: Vulva, lesion, excision: Inflamed fibroepithelial polyp; no atypia or fungi identified PFSH Medical History Hx of Surgical History History of esophagogastroduodenoscopy (EGD) Hx of carpal tunnel repair Hx of colonoscopy History of eye surgery Hx of left knee surgery Hx of tubal ligation Hx of dilation and curettage Hx of rotator cuff surgery Family History Mother DMII (diabetes mellitus, type 2) HTN (hypertension) Father Heart attack Daughter Diverticula of colon Social History Household Members: Family Alcohol intake: current Alcohol intake frequency: holidays/special occasions only Patient Tobacco Use Status: Current everyday Tobacco user Cigarette Packs Per Day: 1.5 Cigarettes Per Day: 30.0 Current occupational status: disabled Review of Systems Const All systems reviewed & are unremarkable except as noted in HPI and below Reports as per HPI and Reports no additional complaints GI Reports no additional complaints Reports no additional complaints Physical Exam Vital Signs: BMI result Body Mass Index 18.7 Office Procedures CARGO OPERATIONS AGENT Biopsy Before the procedure was started d/w patient the procedure, alternatives ( do nothing, medical rx), & all the risks associated with the procedure ( bleeding , infection, vulvar scarring, painful intercourse, injury to vessels, possible need for transfusion with all its risks) then patient signed the consent. Preop dx: Left vulvar lesion Op: Left vulvar lesion excision Post op: Same Anesthesia: Lidocaine 1% 3cc used Procedure: Using betadine the area was scrubbed and draped in the usual manner. 3 cc of lidocaine was used for anesthesia at the left vulvar lesion area ; using scissors and pickup the left vulvar lesion was excised. Pressure was used for hemostasis. The patient tolerated the procedure well. Discharge Instructions: The patient was instructed to schedule an appointment in 2 weeks for follow-up and to call if temp>100.4, area of the biopsy redness or pain, nausea/vomiting. This note was generated with a voice recognition program. Some errors may have been overlooked during the review of this note. Sometimes these errors may affect the content or meaning of a given sentence. [id number] of Vulva/Perineum Procedure code (CPT) selection complete Assessment & Plan Assessment & Plan (1) Vulvar lesion: Comment: With multiple perianal /vulvar lesions Code(s): N90.89 - Other specified noninflammatory disorders of vulva and perineum Category: Medical Plan: Discussed with the patient the results the pathology, instructions given the patient to call in case of recurrence of the lesion Discussed with the patient the other lesions, recommended another excision biopsy to rule out perianal MAICOL 2/3. Left labia majora excisional biopsy taken, see procedure note Orders: Orders AMB CARGO OPERATIONS AGENT Biopsy Today N90.89 - Other specified noninflammatory disorders of vulva and perineum Coding Level of Care Code Est Pt Level 3 (66793) Procedure Only Diagnoses Vulvar lesion N90.89 CPT Codes CARGO OPERATIONS AGENT Biopsy - CPT: 88413-Gprvqz of Vulva/Perineum ([id number])
[2024-06-17 14:41] VITALS: BMI 18.7
--- OUTSIDE RECORDS SUMMARY | 2024-06-17 17:13 | XMS_ITS | Continuity of Care Document ---
Author Organization [id number] Address [address] [place] [address]- Care Team Providers Care Research Coordinator Name Role Phone Nino Cuadra MD Primary Care Physician Encounter [facility] [place] Date(s): 05/30/24 - 06/06/24 [id number] Adult [address] [address]- Encounter Diagnosis COPD, moderate(Discharge Diagnosis) - 05/30/24 Hypercholesterolemia(Discharge Diagnosis) - 05/30/24 Impaired fasting glucose(Discharge Diagnosis) - 05/30/24 Medicare annual wellness visit, subsequent(Discharge Diagnosis) - 05/30/24 Attending Physician: Nino Cuadra MD Encounter Type: Office Visit Allergies, Adverse Reactions, Alerts Substance Criticality Severity Reaction Reaction Severity Status erythromycin GI upset Active Lactose GI upset Active azithromycin Resolve d Immunizations Given and Recorded Vaccine Date Status Refusal Reason influenza virus vaccine, inactivated 01/16/24 Lanre rded influenza virus vaccine, inactivated 01/23/23 Lanre rded influenza virus vaccine, inactivated 01/24/22 Lanre rded influenza virus vaccine, inactivated 1 02/17/21 Gi haylie influenza virus vaccine, inactivated 01/02/20 Lanre rded influenza virus vaccine, inactivated 2 02/05/18 Gi haylie influenza virus vaccine, inactivated 3 03/03/16 Gi haylie influenza virus vaccine, inactivated 01/22/15 Give n influenza virus vaccine, inactivated 4 02/12/13 Gi haylie SARS-CoV-2(COVID-19)mRNA-LNP vac([id number]) 01/16/24 Recorded SARS-CoV-2(COVID-19)mRNA-LNP vac([id number]) 01/23/23 Recorded RSV vaccine preF3, recombinant 01/23/23 Recorded pneumococcal 20-valent conjugate vaccine 03/05/22 Recorded tetanus/diphtheria/pertussis, acel(Tdap) 03/05/22 Recorded tetanus/diphtheria/pertussis, acel(Tdap) 5 04/19/11 Given [id number] 12y+ bivalent booster vax 01/28/22 Recorded SARS-CoV-2 (COVID-19) mRNA BNT-162b2 vac 03/15/21 Recorded SARS-CoV-2 (COVID-19) mRNA BNT-162b2 vac 07/21/20 Recorded SARS-CoV-2 (COVID-19) mRNA BNT-162b2 vac 06/30/20 Recorded pneumococcal 13-valent vaccine 01/02/20 Recorded zoster vaccine, inactivated 06/25/19 Recorded Influenza Virus Vaccine (oldterm) 01/15/19 Recorde d Afluria (oldterm) 6 03/06/17 Given Zoster Vaccine Live 03/10/15 Given pneumococcal 23-valent vaccine 03/10/15 Given pneumococcal 23-valent vaccine 7 02/09/09 Given Fluzone Preservative-Free (oldterm) 8 01/28/14 Giv en 1Result Comment: [facility]: [id number] 2Result Comment: [02/05/2018] [facility]# [id number] 3Result Comment: [03/03/2016] all 3 questions answered 4Admin Note: vis 10/16/12 5Admin Note: VIS: 03/04/2008 6Result Comment: [03/06/2017] [id number] 7Admin Note: VIS: 01/20/09 8Admin Note: vis given Problem List Condition Confirmation Course Effective Dates Status Health Status Informant Anxiety Confirmed Active Carotid stenosis, left 1 Confirmed Active MONIQUE 3 - Cervical intraepithelial neoplasia grade 3 Confirmed 2005 Active Constipation in female Confirmed Active DDD (degenerative disc disease), lumbosacral Confirmed Active Gastritis Confirmed Active Hip pain, right Confirmed Active Hypercholesterolemia Confirmed 2005 Active Impaired fasting glucose Confirmed Active Knee pain, left Confirmed Active COPD, moderate Confirmed Active Lung nodules Confirmed Active Osteopenia Confirmed Active Medicare annual wellness visit, subsequent Confirmed Active Perianal wart Confirmed Active Colon polyps Confirmed Active Left shoulder pain Confirmed Active Loud snoring Confirmed Active Left-sided tinnitus Confirmed Active Tobacco use Confirmed Active 11-49% ICA 11/2013 Diagnosis Diagnosis Type Effective Dates Health Status Clinical Service Informant COPD, moderate Discharge Diagnosis 05/30/24 Hypercholesterolemia Discharge Diagnosis 05/30/24 Impaired fasting glucose Discharge Diagnosis 05/30/24 Medicare annual wellness visit, subsequent Discharge Diagnosis 05/30/24 Vital Signs Most recent to oldest [Reference Range]: 1 Height 175 cm (05/30/24 9:23 AM) Weight 61.2 kg (05/30/24 9:23 AM) Oxygen Saturation [94-100 %] 95 % (05/30/24 9:23 AM) Pulse Rate [55-90 bpm] 71 bpm (05/30/24 9:23 AM) Body Mass Index [18.5-24.99 kg/m2] 19.98 kg/m2 (05/30/24 9:23 AM) Blood Pressure [90-138/55-84 mm Hg] 138/ 76mm Hg (05/30/24 9:23 AM) Mode of Delivery (Oxygen) Room air (05/30/24 9:23 AM) Blood pressure sites Arm, right (05/30/24 9:23 AM) Weight Obtained Via Standing scale (05/30/24 9:23 AM) Social History Social History Type Response Smoking Status Current every day sm [place]; Type: Cigarettes; Other: 1ppd; entered on: 05/15/17 Sex Sex Representation Female (finding) Implantable Device List Procedure Provider Procedure Date Device Type Site SAD DCE with Rotator Cuff Repair Sydni Delgado MD, Magdi Benavides 07/24/17 Unknown Shoulder Left Device Identifier Serial Number Lot or Batch Number Manufacturing Date Expiration Date Distinct Identification Code MRI Safety Implantable Status Assigning Authority Unknown Unknown Unknown 11/15/19 Unknown Unknown Active Unk nown Note * Nancy Boykin: PERFORM Event Display: Patient Education/Instruction Authored Date: [id number] Ambulatory Adult Visit Summary [facility] [address] [address] Name: GRACIELA BOSTON : 1955?? Visit: 05/30/2024 09:02?? Ambulatory Visit Instructions ?? Your Care Team Primary Care Provider Nino Cuadra MD? This Visit Provider Nino Cuadra MD Vitals Signs Pulse Rate: 71 bpm Height: 175 cm Systolic Blood Pressure: 138 mm Hg Weight: 61.2 kg Diastolic Blood Pressure: 76 mm Hg Body Mass Index: 19.98 kg/m2 Oxygen Saturation: 95 % Body surface area: 1.72 Medications The list below reflects the information in our records and provided by you today along with any changes made during this visit. Please continue your medications until treatment is completed or stopped by your provider. If this is different from the information you have or there are other questions,please contact the prescribing provider. What How Much When Instructions Unchanged Acetaminophen (Tylenol 8 Hour Caplet) 1,300 Milligram Oral Every 8 hours Unchanged Albuterol (ProAir HFA 90 mcg/ inh inhalation aerosol with adapter) 1 puff(s) Inhalation Every 6 hours as needed for for wheezing Unchanged BusPIRone (busPIRone 10 mg oral tablet) 1 tab(s) Oral Twice a day Unchanged Cholecalciferol (Vitamin D3 oral tablet) 2 tab(s) Oral Daily Unchanged Cranberry (Cranberry oral tablet) Unchanged Pravastatin (pravastatin 10 mg oral tablet) 1 tab(s) Oral Daily at Bedtime Unchanged Ubiquinone (CoQ10) 300 Milligram Oral Daily Unchanged Zoledronic Acid (Reclast 5 mg/ 100 mL intravenous solution) 5 Milligram Intravenous Infusion Once ?? What How Much When Comments Stop Taking Docusate (docusate sodium 100 mg oral capsule) TAKE 2 CAPSULES (200MG) BY MOUTH AT BEDTIME ?? Stop Taking zoster vaccine, inactivated (Shingrix intramuscular injection) 0.5 Milliliter Intramuscular Once repeat dose in 2 to 6 months ?? Medications and Immunizations Administered Medications Given During Visit No medications given during this visit.?? Allergies (NKA means No Known Allergies) Lactose??(GI upset) erythromycin??(GI upset) Common Emergency Awareness Tips IS IT A STROKE? Act FAST and Check for these signs: FACE Does the face look uneven? ARM Does one arm drift down? SPEECH Does their speech sound strange? TIME Call at any sign of stroke ?? Heart Attack Signs Chest discomfort: Most heart attacks involve discomfort in the center of the chest and lasts more than a few minutes, or goes away and comes back. It can feel like uncomfortable pressure, squeezing, fullness or pain. Discomfort in upper body: Symptoms can include pain or discomfort in one or both arms, back, neck, jaw or stomach. Shortness of breath: With or without discomfort. Other signs: Breaking out in a cold sweat, nausea, or lightheaded. Remember, MINUTES DO MATTER. If you experience any of these heart attack warning signs, call to get immediate medical attention! ?? Smoking can increase your chances of developing chronic health problems and can cause harmful effects to other family members in your house. If you smoke, you are strongly encouraged to quit. Please call [employer] at [phone] or [phone] ([phone]) or log in to [email or web address] for referrals to smoking cessation programs. ?? The National Suicide Prevention Hotline is available 07/11 if you or someone you know needs to find a reason to keep living. By calling 4-704-966-Digital[employer]visor (1335) you'll be connected to a skilled, trained counselor at a crisis center in your area. [facility] [employer] Portal You can view and manage your care through the patient portal or by using a health care derian of your choosing. [employer] is a website that allows you to securely view your medical information including your hospital discharge summary, office visit summaries, medications and follow-up visits. You can also request appointments, renew medications, and request access to your medical information using a health care derian of your choosing, or just ask a question. You can enroll at [email or web address] or register during your next office visit. [facility], in keeping with [facility] guidance, no longer requires face masks for staff, patientsor visitors in most situations. Similiar to time spent indoors at other locations, there is the chance that you were exposed to repiratory viruses during your time with us (such as flu or COVID-19). If you develop symptoms concerning for a viral respiratory infection, please seek testing (and treatment if indicated) from your medical provider or home test kit. ?? Disclaimer: The information provided is of a general nature and is intended to be used in conjunction with the recommendations and advice of your health care practitioner. Every effort has been made to ensure that the information provided is accurate and complete at the time it is provided to you however, as your needs change, or, as new information becomes available, different or additional instructions may be required. ?? If you have questions, please consult with your primary care provider or pharmacist, as appropriate. This information is not intended to serve as substitution for assessment and evaluation by a qualified health care provider. If you do not have a primary care provider, you may find a [facility] provider by calling [facility] at [phone]. Patient Care team information Care Team Personnel Name: Nino Cuadra MD Position: [facility] Physician - Primary Care Member Role: PCP Address: [address] [place] [id number]- Telecom: Name: Benjamin Noriega DO Position: [facility] SUPERVISING NURSE Member Role: [employer] SUPERVISING NURSE Physician Address: [address] [place] [phone]- Telecom: Care Team Related Persons Name: PRIMO BOSTON Insurance Providers Guarantor name: GRACIELA DARVIN Health Plan Information #: 2 Payer: [employer] Member Number: [id number] Policy Number: NA Group Number: NA Health Plan Information #: 1 Payer: MEDICARE PART B OUTPT Member Number: [id number] Policy Number: NA Group Number: NA
== END 2024-06-17 15:06 | disposition home or self-care (01) ==
PROVIDERS: PCP Internal Medicine; Visit Provider Obstetrics & Gynecology
DX: N90.89 Other specified noninflammatory disorders of vulva and perineum (principal)
CPT/HCPCS: 56605; 99213

== ENCOUNTER 2024-07-10 10:24 | Outpatient (AMB) | payer MEDICARE, SELFPAY ==
--- NOTE | 2024-07-10 10:25 | MHC.OFFVIS ---
Intake Visit Reasons: biopsy results Allergies erythromycin base [From Erythrocin] Allergy (Intermediate, Verified 06/17/24 14:41) GI upset LACTOSE Allergy (Intermediate, Uncoded 06/17/24 14:41) GI upset HPI Comments Details: The patient is scheduled a telehealth visit post vulvar biopsy. The pathology showed the following: Vulva, left labia major lesion, shave biopsy: Condyloma acuminatum PFSH Medical History Hx of Surgical History History of esophagogastroduodenoscopy (EGD) Hx of carpal tunnel repair Hx of colonoscopy History of eye surgery Hx of left knee surgery Hx of tubal ligation Hx of dilation and curettage Hx of rotator cuff surgery Family History Mother DMII (diabetes mellitus, type 2) HTN (hypertension) Father Heart attack Daughter Diverticula of colon Social History Household Members: Family Alcohol intake: current Alcohol intake frequency: holidays/special occasions only Patient Tobacco Use Status: Current everyday Tobacco user Cigarette Packs Per Day: 1.5 Cigarettes Per Day: 30.0 Current occupational status: disabled Review of Systems Const All systems reviewed & are unremarkable except as noted in HPI and below Reports as per HPI and Reports no additional complaints GI Reports no additional complaints Reports no additional complaints Telehealth Telehealth Telehealth Platform: [facility] Location of provider rendering services: practice address Location of patient: address on file Patient Identification confirmed using: Name, : Yes Telehealth method: video Patient verbally consented to treatment: Yes Patient verbally consented to billing insurance company: Yes Patient informed of any privacy concerns related to visit: Yes Minutes spent on Phone/Video with Pt.: 8 Assessment & Plan Assessment & Plan (1) Condyloma acuminata: Code(s): A63.0 - Anogenital (venereal) warts Category: Medical Plan: Discussed with the patient the findings on physical exam, treatment options including cream application to the affected area, excision, cryotherapy or laser, will start with Aldara cream no more than 16 weeks . Insructions given to the pt to call if not improved, any irrtations, apply x3/week at bed time and rinse very well in am. Since and to schedule a 4 week follow-up appointment I spent a total of 20 minutes reviewing the chart, talking to the patient via video and documenting in the medical record. Medications: New imiquimod 5% Apply 3 times a week at bedtime, rinse very well in a.m. not to be applied more than 16 weeks 1 appl topical 3XW 16 weeks 24 ea 0RF Coding Level of Care Code Tele Est Pt Level 3 (95126) Diagnoses Condyloma acuminata A63.0
--- OUTSIDE RECORDS SUMMARY | 2024-07-10 12:11 | XMS_ITS | Continuity of Care Document ---
Author Organization [facility] Address [address] [place] [address]- Care Team Providers Care Air Traffic Systems Technician Name Role Phone Nino Cuadra MD Primary Care Physician Encounter [facility] Date(s): 05/28/24 - 06/27/24 [facility] [address] [address]- Encounter Type: Triage Allergies, Adverse Reactions, Alerts Substance Criticality Severity Reaction Reaction Severity Status erythromycin GI upset Active azithromycin Resolve d Lactose GI upset Active Immunizations Given and Recorded Vaccine Date Status [...] vaccine, inactivated 4 02/12/13 Gi haylie SARS-CoV-2(COVID-19)mRNA-LNP vac(mxy752) 01/16/24 Recorded SARS-CoV-2(COVID-19)mRNA-LNP vac(bey050) 01/23/23 Recorded RSV vaccine preF3, recombinant 01/23/23 Recorded pneumococcal 20-valent conjugate vaccine 03/05/22 Recorded tetanus/diphtheria/pertussis, acel(Tdap) 03/05/22 Recorded tetanus/diphtheria/pertussis, acel(Tdap) 5 04/19/11 Given [id number] 12y+ bivalent booster vax 01/28/22 Recorded SARS-CoV-2 [...] (oldterm) 8 01/28/14 Giv en 1Result Comment: [facility]: 60507-852-51 2Result Comment: [02/05/2018] [facility]# 20733-711-16 3Result Comment: [03/03/2016] all 3 questions answered 4Admin Note: vis 10/16/12 5Admin Note: VIS: 03/04/2008 6Result Comment: [03/06/2017] [id number] 7Admin Note: VIS: 01/20/09 8Admin Note: vis [...] Tobacco use Confirmed Active 11-49% ICA 11/2013 Social History Social History Type Response Smoking Status Current every day sm oker; Type: Cigarettes; Other: 1ppd; entered on: 05/15/17 Sex Sex Representation Female (finding) Implantable Device List Procedure Provider Procedure Date Device Type Site SAD DCE with Rotator Cuff Repair Sydni Delgado MD, Magdi Benavides 07/24/17 Unknown Shoulder Left Device Identifier Serial Number Lot or Batch Number Manufacturing Date Expiration Date Distinct Identification Code MRI Safety Implantable Status Assigning Authority Unknown Unknown [id number] Unknown 11/15/19 Unknown Unknown Active Norbertok tiff Patient Care team information Care Team Personnel Name: Nino Cuadra MD Position: [facility] Physician - Primary Care Member Role: PCP Address: [address] [place] [phone]- Telecom: Name: Benjamin Noriega DO Position: [facility] FINANCIAL SERVICES AGENT Member Role: [employer]CIAL SERVICES AGENT Physician Address: [address] [place] [phone]- Telecom: Care Team Related Persons Name: PRIMO BOSTON Insurance Providers Guarantor name: GRACIELA DARVIN Health Plan Information #: 1 Payer: MEDICARE PART B OUTPT Member Number: NA Policy Number: NA Group Number: NA Health Plan Information #: 2 Payer: MEDEX Member Number: NA Policy Number: NA Group Number: NA
== END 2024-07-10 10:40 | disposition home or self-care (01) ==
LOC: HO.HWS 10:24
PROVIDERS: PCP Internal Medicine; Visit Provider Obstetrics & Gynecology
DX: A63.0 Anogenital (venereal) warts (principal)
CPT/HCPCS: 99213

== ENCOUNTER → 2024-07-10 10:24 | Outpatient (BNVA) | payer MEDICARE, SELFPAY | PROVIDERS: PCP Internal Medicine; Visit Provider Obstetrics & Gynecology ==

== ENCOUNTER 2024-08-12 12:26 | Outpatient (AMB) | payer MEDICARE, SELFPAY ==
--- NOTE | 2024-08-12 12:26 | A.OFFVIS_ITS ---
Intake Visit Reasons: Follow up Allergies erythromycin base [From Erythrocin] Allergy (Intermediate, Verified 06/17/24 14:41) GI upset LACTOSE Allergy (Intermediate, Uncoded 06/17/24 14:41) GI upset HPI Comments Details: The patient is scheduled a telehealth visit 4 weeks post initiation of Aldara cream for follow-up. The patient has used Aldara cream for 3 consecutive week and developed allergic reaction to it and was discontinued Perineal lesion vulvar biopsy pathology showed the following: Vulva, left labia major lesion, shave biopsy: Condyloma acuminatum PFSH Medical History Hx of Surgical History History of esophagogastroduodenoscopy (EGD) Hx of carpal tunnel repair Hx of colonoscopy History of eye surgery Hx of left knee surgery Hx of tubal ligation Hx of dilation and curettage Hx of rotator cuff surgery Family History Mother DMII (diabetes mellitus, type 2) HTN (hypertension) Father Heart attack Daughter Diverticula of colon Social History Household Members: Family Alcohol intake: current Alcohol intake frequency: holidays/special occasions only Patient Tobacco Use Status: Current everyday Tobacco user Cigarette Packs Per Day: 1.5 Cigarettes Per Day: 30.0 Current occupational status: disabled Review of Systems Const All systems reviewed & are unremarkable except as noted in HPI and below Reports as per HPI and Reports no additional complaints GI Reports no additional complaints Reports no additional complaints Telehealth Telehealth Telehealth Platform: [employer] Location of provider rendering services: practice address Location of patient: address on file Patient Identification confirmed using: Name, : Yes Telehealth method: video Patient verbally consented to treatment: Yes Patient verbally consented to billing insurance company: Yes Patient informed of any privacy concerns related to visit: Yes Assessment & Plan Assessment & Plan (1) Condyloma acuminata: Code(s): A63.0 - Anogenital (venereal) warts Category: Medical Plan: Discussed with the patient different options of treatment including trichloracetic acid, excision, electrocautery, cryotherapy, laser treatment. The patient prefers laser submit, will refer to [facility] for further management Instructed the patient to call our office back in case a referral appointment is not scheduled, missed or canceled so that we will assist on rescheduling another appointment, the patient verbalized understanding agreed with the plan. Coding Level of Care Code Est Pt Level 3 (57818) Diagnoses Condyloma acuminata A63.0
== END 2024-08-12 13:11 | disposition home or self-care (01) ==
LOC: HO.HWS 12:26
PROVIDERS: PCP Internal Medicine; Visit Provider Obstetrics & Gynecology
DX: A63.0 Anogenital (venereal) warts (principal)
CPT/HCPCS: 99213

== ENCOUNTER → 2024-08-12 12:26 | Outpatient (BNVA) | payer MEDICARE, SELFPAY | PROVIDERS: PCP Internal Medicine; Visit Provider Obstetrics & Gynecology | DX: A63.0 Anogenital (venereal) warts (principal) | CPT/HCPCS: 99212 ==